=== PATIENT | female | born 1955 | race Caucasian/White ===

== ENCOUNTER 2018-03-17 12:54 | Day surgery (SDC) | payer OTHER ==
[~2018-03-17] VITALS: Ht 160 cm; Wt 62.4 kg
[~2018-03-17 12:54] MED LIST: AMLO-145
[2018-03-17 13:30] VITALS: Ht 160 cm; Wt 62.4 kg
[2018-03-17] MEDS ORDERED: LOSA25TA12 PO (13:35)
[2018-03-17] MEDS ORDERED: METF500T3 PO (13:35)
[2018-03-17 13:59] VITALS: BP 177/82; PULSE 87; RESP 9
--- NOTE | 2018-03-17 15:11 | PREAC ---
Date/Time of Note Date/Time of Note DATE: 03/17/18 TIME: 15:10 Anesthesia Eval and Record Evaluation Time Pre-Procedure Interview DATE: 03/17/18 TIME: 15:10 Age 63 Sex female NPO: 8 hrs Preoperative diagnosis screening Planned procedure colonoscopy Past Medical History Past Medical History: Includes Cardio: HTN Endo: Diabetes Surgery & Anesthesia Issues No known issue Meds Anticoagulation: No Beta Monica within 24 hr: No Reason Beta Monica not given: Pt. not on B-Monica Reported Medications Metformin Hcl* (Metformin Hcl* ER) 500 Mg Tab.sr.24h, 500 MG PO DAILY, #30 TAB 03/17/18 Losartan Potassium* (Losartan Potassium*) 25 Mg Tablet, 25 MG PO DAILY, TAB 03/17/18 Discontinued Reported Medications Amlodipine Besylate* (Amlodipine Besylate*) 5 Mg Tablet 01/10/10 Meds reviewed: Yes Allergies Coded Allergies: No Known Drug Allergies (Verified Allergy, Mild, 01/10/10) Allergies Reviewed: Yes Labs/Studies Labs Reviewed: Reviewed by anesthesiologist test: N/A Studies: ECG (n/a), CXR (n/a) Pre-procedure Exam Last vitals Vital Signs Date Temp Pulse Resp B/P (MAP) Pulse Ox O2 O2 Flow FiO2 Time Delivery Rate 03/17/18 98.0 87 9 177/82 100 Room Air 13:59 (113) Airway: Adequate mouth opening Mallampati: Mallampati I Teeth: Normal Lung: Normal Heart: Normal ASA Physical Status ASA physical status: 2 Emergency: None Planned Anesthetic General/MAC: MAC Planned Pain Management Parenteral pain med Pre-operative Attestations Prior to commencing anesthesia and surgery, the patient was re-evaluated, there was verification of: *The patient's identity *The results of appropriate recent lab work and preoperative vital signs *The above evaluation not changing prior to induction *Anesthetic plan, risk benefits, alternative and complications discussed with patient/family; questions answered; patient/family understands, accepts and wishes to proceed. CHRISTIANO TOLENTINO MD Mar 17, 2018 15:11
[2018-03-17] MEDS ORDERED: PROPOFOL 20 ML ONE (15:12)
[2018-03-17] MEDS ORDERED: FENTAnyl 50 MCG/ML VIAL ONE (15:12)
[2018-03-17 16:13] VITALS: BP 169/86; RESP 14
--- NOTE | 2018-03-17 17:15 | PAC ---
Date/Time of Note Date/Time of Note DATE: 03/17/18 TIME: 17:14 Post-Anesthesia Notes Post-Anesthesia Note Last documented vital signs Vital Signs Date Temp Pulse Resp B/P (MAP) Pulse Ox O2 O2 Flow FiO2 Time Delivery Rate 03/17/18 97.9 78 14 169/86 98 Room Air 16:13 (113) 03/17/18 98.0 87 13:59 Activity: WNL Respiratory function: WNL Cardiovascular function: WNL Mental status: Baseline Pain reasonably controlled: Yes Hydration appropriate: Yes Nausea/Vomiting absent: No CHRISTIANO TOLENTINO MD Mar 17, 2018 17:15
== END 2018-03-17 17:13 | disposition home or self-care (01) ==
LOC: GIL 12:54
PROVIDERS: ATTEND Internal Medicine Gastroenterology
DX: Z12.11 Encounter for screening for malignant neoplasm of colon (principal); D12.3 Benign neoplasm of transverse colon; K57.30 Diverticulosis of large intestine without perforation or abscess without bleeding; E11.9 Type 2 diabetes mellitus without complications; I10 Essential (primary) hypertension
CPT/HCPCS: 45380; 82962; 88305; J3010; Z7610